=== PATIENT | male | born 1965 | race Caucasian/White ===

== ENCOUNTER 2017-06-10 09:16 | Day surgery (SDC) | payer OTHER ==
[2017-06-10] MEDS ORDERED: MIDAZOLAM 1 MG/ML 2 ML INJ ×2 (11:09)
[2017-06-10] MEDS ORDERED: FENTAnyl 50 MCG/ML VIAL (11:09)
== END 2017-06-10 11:59 | disposition home or self-care (01) ==
LOC: GIL 09:16
DX: Z12.11 Encounter for screening for malignant neoplasm of colon (principal); E11.9 Type 2 diabetes mellitus without complications; F17.200 Nicotine dependence, unspecified, uncomplicated; Z79.84 Long term (current) use of oral hypoglycemic drugs
CPT/HCPCS: 45378; 82962